=== PATIENT | female | born 2000 | race Caucasian/White ===

== ENCOUNTER 2022-11-11 06:36 | Day surgery (SDC) | payer MEDICAID ==
[2022-11-11] MEDS ORDERED: Sodium Chloride 0.9% 1,000 ML IV SCH (07:00)
[2022-11-11] MEDS ORDERED: Midazolam 1 MG/ML 2 ML SDV ONE (07:31)
[2022-11-11] MEDS ORDERED: Propofol 200 MG/20 ML SDV ONE (07:31)
[2022-11-11] MEDS ORDERED: fentaNYL 100 MCG/2 ML SDV ONE (07:31)
== END 2022-11-11 09:30 | disposition home or self-care (01) ==
LOC: JP.SDS 06:36
PROVIDERS: ATTEND Surgery
DX: K63.5 Polyp of colon (principal); J45.909 Unspecified asthma, uncomplicated; K21.9 Gastro-esophageal reflux disease without esophagitis; F41.9 Anxiety disorder, unspecified; F32.A Depression, unspecified; Z79.899 Other long term (current) drug therapy; Z88.1 Allergy status to other antibiotic agents; Z88.0 Allergy status to penicillin; Z91.018 Allergy to other foods
CPT/HCPCS: 36415; 43239; 45381; 45385; 84703; 88305; J2250; J2704; J3010; J7030